=== PATIENT | female | born 1990 | race African-American/Black ===

== ENCOUNTER 2025-06-18 09:53 | Emergency (ER) | payer SELFPAY ==
[~2025-06-18] VITALS: Ht 170.2 cm; Wt 77.0 kg
[2025-06-18 09:57] VITALS: O2SAT 98
[2025-06-18 10:25] LABS: BASOPHILS % 0.2 % (0.0-2.0); EOSINOPHILS % 0.6 % (0.0-5.0); HEMATOCRIT. 27.9 % (36.0-48.0); HEMOGLOBIN. 8.5 g/dL (12.0-16.0); LYMPHOCYTES % 11.4 % (20.0-50.0); MEAN PLATELET VOLUME 7.4 fl (7.4-10.4); MONOCYTES % 5.3 % (2.0-8.0); NEUTROPHILS % 82.5 % (40.0-76.0); PLATELET 488 x1000/uL (130-400); RED BLOOD CELL COUNT 4.54 mill/uL (4.2-5.4); RED CELL DISTRIBUTION WIDTH 21.4 % (11.6-14.6)
[2025-06-18 10:28] LABS: ADD RBC MORPHOLOGY YES
[2025-06-18] MEDS: KETOROLAC 15MG/ML VIAL IV ONE (10:35)
[2025-06-18] MEDS: SODIUM CHLORIDE 0.9% 1,000 ML IV ONE (10:35)
[2025-06-18 10:41] LABS: CREATININE 0.6 mg/dL (0.6-1.0); UREA NITROGEN BLOOD < 5 mg/dL (9-23)
[2025-06-18 10:43] LABS: ASPARTATE AMINOTRANSFERASE 10 IU/L (<34); BILIRUBIN DIRECT < 0.1 mg/dL (<=3.0); BILIRUBIN TOTAL 0.3 mg/dL (0.1-1.0); PROTEIN TOTAL 7.3 g/dL (6.0-8.3)
[2025-06-18 10:59] LABS: CLARITY URINE CLOUDY (CLEAR); COLOR URINE DARK YELLOW (YELLOW); GLUCOSE URINE NEGATIVE (NEGATIVE); KETONES URINE 1+ (NEGATIVE); LEUKOCYTE ESTERASE URINE 3+ (NEGATIVE); NITRITE URINE NEGATIVE (NEGATIVE); OCCULT BLOOD URINE 3+ (NEGATIVE); PH URINE >=9.0 (4.5-8.0); PROTEIN URINE 2+ (NEGATIVE); SPECIFIC GRAVITY URINE 1.022 (1.005-1.030); UROBILINOGEN URINE 1.0 E.U./dL (0.2-1.0)
[2025-06-18 11:03] LABS: HCG SCREEN NEGATIVE
[2025-06-18 11:21] LABS: SQUAMOUS EPITHELIAL CELL URINE 2+ /lpf (RARE/1+)
[2025-06-18 11:22] LABS: WBC URINE 50-100 /hpf (0-2)
[2025-06-18 11:23] LABS: BACTERIA URINE 3+; RBC URINE TNTC /hpf (0-2)
[2025-06-18 12:03] LABS: PLATELET ESTIMATE INCREASED
[2025-06-18] MEDS: DOXYCYCLINE HYCLATE 100MG CAPSULE PO ONE (13:35)
[2025-06-18] MEDS: CEFTRIAXONE 1GM/50ML 50 ML IV ONE (13:35)
[2025-06-18] MEDS: IOHEXOL-300 100 ML BOTTLE ONE (13:35)
[2025-06-18] MEDS ORDERED: METR-167 MT (13:44)
[2025-06-18] MEDS ORDERED: DOXY100T2 MT (13:44)
[2025-06-18 13:52] VITALS: BP 128/92; PULSE 101; RESP 16; TEMP 36.9; O2SAT 100
== END 2025-06-18 14:29 | disposition home or self-care (01) ==
LOC: ER 09:53
DX: N70.93 Salpingitis and oophoritis, unspecified (principal); E10.10 Type 1 diabetes mellitus with ketoacidosis without coma; Z79.899 Other long term (current) drug therapy
CPT/HCPCS: 80076; 80048; 81003; 81025; 84703; 85025; 87086; 36415; 74177; 76830; 76856; 96361; 96365; 96375; 99285; Q9967; J0696; J1885; J7030; Z7610 ×2; A6449